=== PATIENT | female | born 1940 | race Caucasian/White ===

== ENCOUNTER 2016-12-23 09:42 | Inpatient (IN) ==
[2016-12-23] MEDS ORDERED: ANTIVERT PO ONE (10:21)
[2016-12-23] MEDS ORDERED: NS 500 ML IV ONE (10:21)
--- NOTE | 2016-12-23 10:33 | PROVIDER DOCUMENTATION ---
This chart was entered by Violeta Rico Scribe, acting as scribe for Jorge Ayers CRNP. HPI-Syncope/Dizziness - General Chief Complaint: Syncope Stated Complaint: DIZZY/BLACKING OUT/RASH Time Seen by Provider: 12/23/16 09:59 Source: patient Allergies/Adverse Reactions: Patient Allergies Allergy/AdvReac Type Severity Reaction Status Date / Time No Known Allergies Allergy Verified 12/23/16 09:49 Home Medications: Home Medication List Medication Instructions Recorded Confirmed Last Taken Type Meclizine [Antivert] 12.5 mg PO TID #30 tablet 09/29/15 12/23/16 Unknown Rx Metformin HCl [Metformin HCl ER] 500 mg PO BID #60 tab.er.24 09/29/15 12/23/16 Unknown Rx Ondansetron HCl [Zofran] 1 - 2 tab PO Q6H PRN PRN #15 tablet 09/29/15 12/23/16 Unknown Rx - History of Present Illness-Syncope/Dizzy Nature of Presenting Problem: Pt is 76 y/o F presents to the ED with syncopal episode. Pt states the syncopal episode happened this am. Pt states she is a diabetic and has not ate anything today. Pt states check FSBS this am and it was 114. Pt denies injury. Prior Episodes: reports: single episode today Onset/Duration: reports: this morning Timing: reports: gone now Position/Activity at time of episode: reports: standing Symptoms prior to episode: reports: none Context: reports: lost consciousness Loss of Consciousness: brief (seconds) Location of injury. (If syncope resulted in an injury.): reports: none Current Symptoms: reports: none/feels normal Recently Seen Here or By Another Healthcare Provider: No Review of Systems - Adult - REVIEW OF SYSTEMS - ADULT Constitutional: reports: no symptoms reported Eyes: reports: no symptoms reported Ears, Nose, Mouth & Throat: reports: no symptoms reported Cardiovascular: reports: irregular heart rate (tachy). denies: chest pain, heart murmur Respiratory: reports: no symptoms reported Gastrointestinal: reports: no symptoms reported Genitourinary: reports: no symptoms reported Musculoskeletal: reports: no symptoms reported Integumentary: reports: rash (R flank). denies: hives, itching Neurological: reports: syncope. denies: dizziness/vertigo, headache/migraines, numbness, seizure, slurred speech Psychiatric: reports: no symptoms reported Endocrine: reports: no symptoms reported Hematologic/Lymphatic: reports: no symptoms reported Allergic/Immunologic: reports: no symptoms reported All Other Systems: Reviewed and Negative Past History - Adult - PAST MEDICAL HISTORY-ADULT Review of Records: reports: Nursing Assessment Review, Medications Reviewed, Social history reviewed & non-contributory. Major Childhood Illnesses: reports: denies history Cardiovascular: reports: denies history Respiratory: reports: denies history Gastrointestinal: reports: GERD Obstetrical/Gynecological: reports: denies history Genitourinary: reports: denies history Musculoskeletal: reports: denies history Neurological: reports: denies history Endocrine/Immune: reports: Diabetes Other Conditions: reports: denies history - PRIOR SURGERIES/PROCEDURES Surgical/Procedure History: reports: reviewed, not pertinent - IMMUNIZATION STATUS Childhood Immunizations: See Nurse Assessment Flu Vaccine: See Nurse Assessment - FAMILY HISTORY Family History: reviewed, not pertinent - SOCIAL HISTORY Smoking: denies Substance Use: denies Living Situation: family Physical Exam-General - PHYSICAL EXAM-ADULT Initial Vital Signs Reviewed: Yes - CONSTITUTIONAL General Appearance: appears well, alert, no apparent distress - EYES Eyes: PERRL/EOMI, pink conjunctivae - HEAD, EARS, NOSE, MOUTH & THROAT HENMT: normocephalic/atraumatic, moist mucous membranes, normal ENT inspection, pharynx normal, TM abnormal (bilateral TM white and scarred) - NECK Neck: non-tender, full range of motion, supple, normal inspection - RESPIRATORY Respiratory: chest non-tender, lungs clear, normal breath sounds, no pleuratic chest pain, no respiratory distress, no accessory muscle use - CARDIOVASCULAR Cardiovascular: normal peripheral pulses, no edema, no gallop, no JVD, no murmur , tachycardia - GASTROINTESTINAL (ABDOMEN) Abdominal Exam: normal bowel sounds, non tender, soft, no organomegaly, no pulsatile mass - LYMPHATIC Lymphatic: no adenopathy - MUSCULOSKELETAL Back Exam: normal inspection, no CVA tenderness, no vertebral tenderness Extremity: normal range of motion, non-tender, normal gait, normal inspection, no pedal edema, no calf tenderness, normal capillary refill, pelvis stable - SKIN Integumentary: normal color, normal turgor, warm/dry, rash (R flank) - NEUROLOGIC 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 as tested, no motor/sensory deficits - PSYCHIATRIC Psych/Mental Status: normal mood/affect, normal thought content, normal thought process, oriented x 3 Progress - PLAN OF CARE/RESULTS Progress/Plan/Lab Results: Vital Signs - 8 hr 12/23/16 09:44 12/23/16 12:08 Temperature 97.0 F L Pulse Rate 109 H 98 H Respiratory Rate 20 16 Blood Pressure 110/069 116/057 O2 Sat by Pulse Oximetry 96 96 Laboratory Results - last 24 hr 12/23/16 12/23/16 12/23/16 10:40 10:40 10:40 WBC 20.97 H RBC 5.73 H Hgb 16.9 H Hct 49.3 H MCV 86.0 MCH 29.5 MCHC 34.3 RDW Std Deviation 13.1 Plt Count 211 MPV 10.2 Immature Gran % (Auto) 0.3 Neut % (Auto) 90.9 H Lymph % (Auto) 4.5 L Casey % (Auto) 3.9 Eos % (Auto) 0.3 Baso % (Auto) 0.1 Immature Gran # (Auto) 0.06 H Neut # (Auto) 19.07 H Lymph # (Auto) 0.94 L Casey # (Auto) 0.82 H Eos # (Auto) 0.06 Baso # (Auto) 0.02 Sodium 135 L Potassium 4.3 Chloride 97 L Carbon Dioxide 19 L Anion Gap 20 BUN 21 Creatinine 0.8 Estimated GFR/1.73 m2 > 60 BUN/Creatinine Ratio 26 Glucose 164 H Calculated Osmolality 277 Calcium 9.9 Total Bilirubin 1.30 H AST 19 ALT 10 Alkaline Phosphatase 67 Creatine Kinase 67 Troponin T < 0.010 Total Protein 8.4 H Albumin 4.1 Globulin 4.0 Albumin/Globulin Ratio 1.0 Orders Category Date Time Status Saline Loc NOW Care 12/23/16 10:20 Active CHEST-2 VIEWS [RAD] Stat Exams 12/23/16 10:20 Draft CBC WITH ELECTRONIC DIFF [HEME] Stat Lab 12/23/16 10:40 Completed CK PROFILE [SP CHEM] Stat Lab 12/23/16 10:40 Completed COMPREHENSIVE METABOLIC PANEL [CHEM] Stat Lab 12/23/16 10:40 Completed TROPONIN T Stat Lab 12/23/16 10:[address] W/POSS RFLX CULT [URINALYSIS] Stat Lab 12/23/16 12:55 Received 0.9% Sodium Chloride Inj [Ns] 1,000 ml Med 12/23/16 11:53 Discontinued .ROUTE As Directed 0.9% Sodium Chloride Inj [Ns] 1,000 ml Med 12/23/16 13:12 Discontinued .ROUTE As Directed 0.9% Sodium Chloride Inj [Ns] 500 ml Med 12/23/16 10:21 Discontinued IV 999 mls/hr Diphenhydramine [Benadryl] Med 12/23/16 13:00 Discontinued 25 mg IV NOW ONE Famotidine [Pepcid] Med 12/23/16 13:02 Discontinued 20 mg IV NOW ONE Meclizine [Antivert] Med 12/23/16 10:21 Discontinued 25 mg PO NOW ONE Methylprednisolone Sod Succ [Solu-Medrol] Med 12/23/16 13:02 Discontinued 80 mg IV NOW ONE Sodium Chloride 0.9% Med 12/23/16 13:02 Discontinued 5 - 10 ml INJ NOW ONE EKG [EKG] Stat Ther 12/23/16 10:20 Draft Discussed results and plan of care with patient. patient agrees with plan and verbalizes understanding. Result Diagrams: 12/23/16 10:40 12/23/16 10:40 - EKG 1 Time of EKG reading by physician:: 10:24 EKG Read and Signed by:: Yusef Cordova EKG Interpretation (*Must complete 3 of following elements*): Normal Rate: 100 Rhythm: normal sinus rhythm Comments: normal ECG - XRAY 1 XRAY: Bilateral XRAY Study: Chest Impression: Normal XRAY Interpretation: stable. NAP. (Lashawn) - CONSULTS/PCP/HOSPITALIST Notification #1 *Consult/PCP/Hospitalist*: Dr. Boyer Time Discussed: 13:27 Reason/Comments: Admission Consult Disposition: Admit Departure - Departure Time of Disposition Decision: 13:28 DIAGNOSIS: Acute urticaria Syncope Qualifiers: Syncope type: unspecified Qualified Code(s): R55 - Syncope and collapse Hypotension Qualifiers: Hypotension type: unspecified hypotension type Qualified Code(s): I95.9 - Hypotension, unspecified Leukocytosis Qualifiers: Leukocytosis type: unspecified Qualified Code(s): D72.829 - Elevated white blood cell count, unspecified Disposition: ADMITTED INPATIENT 09 Certified Medical Emergency: Emergent Condition: Stable Referrals and Follow-Ups: Jonny Boyer MD [Primary Care Provider] - Attestation - Physician/ CARLOS Attestation Patient care was provided by Advanced Practice Provider:: Yes Advanced Practice Provider:: Jorge Ayers Advanced Practice Provider documentation review:: The Mid-level provider documentation, treatment plan and medical decision making was reviewed by the physician who agrees with all treatment and medical decision making by the MLP. The physician spent face to face time with patient:: Yes Advanced Practice Provider documentation review:: The physician spent face to face time with this patient and agrees with all MLP documentation, treatment, and medical decision making by the MLP. See provider notes for further information. This chart was documented by the indicated scribe, (Violeta Rico Scribe) and accurately reflects the services I performed and decisions made by , Jorge Ayers CRNP, as attested by the provider's signature.
--- NOTE | 2016-12-23 10:37 | EKG Report ---
Test Performed on : 12/23/2016 10:24:09 AM Test Reason : syncope Blood Pressure : / mmHG Vent. Rate : 100 BPM Atrial Rate : 100 BPM P-R Int : 180 ms QRS Dur : 072 ms QT Int : 364 ms P-R-T Axes : 067 085 054 degrees QTc Int : 469 ms Normal sinus rhythm. Normal ECG No previous ECGs available Unconfirmed Result
[2016-12-23 10:46] LABS: BASO% 0.1 % (0.0-0.8); EOS# 0.06 X1000 (0.0-0.7); EOS% 0.3 % (0.0-10.0); HEMATOCRIT 49.3 % (37.0-47.0); HEMOGLOBIN 16.9 g/dL (12.0-16.0); IMM GRAN# 0.06 X1000 (0.0-0.04); IMM GRAN% 0.3 % (0.0-0.5); LYMPH# 0.94 X1000 (1.2-3.4); LYMPH% 4.5 % (20.5-51.1); MANUAL DIFF NEEDED? NO; MCH 29.5 PG (27-31); MCHC 34.3 g/dL (33-37); MONO# 0.82 X1000 (0.11-0.59); MONO% 3.9 % (1.7-9.3); MPV 10.2 FL (7.4-10.4); NEUT% 90.9 % (42.2-75.2); PLT 211 X1000 (130-400); RBC 5.73 XMIL (4.2-5.4)
[2016-12-23 11:00] LABS: AGAP 20; ALBUMIN 4.1 g/dL (3.5-5.0); ALKALINE PHOSPHATASE 67 U/L (32-104); BUN 21 mg/dL (8-22); CALCIUM 9.9 mg/dL (8.8-10.2); CHLORIDE 97 mmol/L (98-107); CK PROFILE 67 U/L (24-173); COSMO 277; GOT 19 U/L (10-30); GPT 10 U/L (10-36); POTASSIUM 4.3 mmol/L (3.5-5.1); SODIUM 135 mmol/L (136-145); TCO2 19 mmol/L (25-35); TOTAL PROTEIN 8.4 g/dL (6.3-8.3)
--- NOTE | 2016-12-23 11:29 | Diag Imaging Result Document ---
PROCEDURE NAME: CHEST-2 VIEWS - 12/23/2016 PA AND LATERAL RADIOGRAPH OF THE CHEST: COMPARISON: 09/29/2015. FINDINGS: There is evidence of prior granulomatous disease, stable. There is stable biapical pleural thickening. This is mild. The lungs may be mildly hyperinflated, stable. The lungs are clear otherwise. Cardiac silhouette and central vasculature are unremarkable. IMPRESSION: Stable chest with no definite acute pathology.
[2016-12-23] MEDS ORDERED: NS 1,000 ML ONE ×2 (11:53→13:12)
[2016-12-23] MEDS ORDERED: BENADRYL IV ONE (13:00)
[2016-12-23] MEDS ORDERED: SODIUM CHLORIDE 0.9% INJ ONE (13:02)
[2016-12-23] MEDS ORDERED: PEPCID IV ONE (13:02)
[2016-12-23] MEDS ORDERED: SOLU-MEDROL IV ONE (13:02)
[2016-12-23 13:04] LABS: URINE CULTURE PL NEEDED? NO
[2016-12-23] MEDS ORDERED: ZOFRAN IV ONE (13:28)
[2016-12-23] MEDS ORDERED: ZOFRAN IV PRN (13:30)
[2016-12-23] MEDS ORDERED: NS 1,000 ML IV ONE ×2 (13:30→13:49)
[2016-12-23 13:38] LABS: BILIRUBIN URINE NEGATIVE (NEGATIVE); BLOOD URINE NEGATIVE (NEGATIVE); CLARITY CLEAR (CLEAR); COLOR YELLOW; GLUCOSE URINE NEGATIVE (NEGATIVE); LEUKOCYTES URINE NEGATIVE (NEGATIVE); NITRITE URINE NEGATIVE (NEGATIVE); PROTEIN URINE 1+(30 mg/dL) mg/dL (NEGATIVE); UROBILINOGEN URINE NORMAL
[2016-12-23 13:39] LABS: OCCULT BLOOD 1 NEGATIVE (NEGATIVE)
[2016-12-23 13:41] LABS: URINE EPITHELIAL CELLS <10 /HPF (<10); URINE RBC <10 /HPF (<10); URINE WBC <10 /HPF (<10)
[2016-12-23 13:42] LABS: URINE CAST NONE SEEN /LPF; URINE CRYSTAL NONE SEEN /HPF; URINE SOURCE VOIDED
[2016-12-23] MEDS ORDERED: TYLENOL PO PRN (20:10)
[2016-12-23] MEDS ORDERED: ROCEPHIN 1 GM/NS 1 GM/50 ML IVPB IV SCH (20:15)
[2016-12-23] MEDS ORDERED: BENADRYL PO PRN (21:13)
[2016-12-24 06:12] LABS: HEMATOCRIT 42.5 % (37.0-47.0); HEMOGLOBIN 14.1 g/dL (12.0-16.0); MCHC 33.2 g/dL (33-37); MCV 87.3 FL (81-99); MPV 10.4 FL (7.4-10.4); RBC 4.87 XMIL (4.2-5.4)
[2016-12-24 06:43] LABS: AGAP 10; ALBUMIN 3.2 g/dL (3.5-5.0); ALKALINE PHOSPHATASE 42 U/L (32-104); BUN 24 mg/dL (8-22); CALCIUM 8.6 mg/dL (8.8-10.2); CHLORIDE 102 mmol/L (98-107); COSMO 279; GOT 16 U/L (10-30); GPT 9 U/L (10-36); MAGNESIUM 1.8 mg/dL (1.5-2.7); POTASSIUM 4.7 mmol/L (3.5-5.1); SODIUM 136 mmol/L (136-145); TCO2 24 mmol/L (25-35); TOTAL PROTEIN 6.1 g/dL (6.3-8.3)
--- NOTE | 2016-12-24 08:04 | Diag Imaging Result Document ---
PROCEDURE NAME: CHEST-2 VIEWS - 12/24/2016 FRONTAL AND LATERAL CHEST, TWO VIEWS: COMPARISON: 12/23/2016. FINDINGS: The lungs are well expanded. The heart is not enlarged. The vessels are not distended. No pleural effusions. No pneumonia. There is scarring in the upper right lung. I believe there are several small calcified mediastinal lymph nodes. IMPRESSION: 1. The lungs are hyperexpanded and there is evidence of a prior granulomatous infection. 2. Stable chest.
[2016-12-24 10:58] VITALS: BP 143/46
--- NOTE | 2016-12-25 00:17 | DISCHARGE SUMMARY ---
ADMISSION DATE: 12/23/2016 DISCHARGE DATE: 12/24/2016 DISCHARGE DIAGNOSES: 1. Syncope, resolved. 2. Hypotension, resolved. 3. Nausea and vomiting, resolved. 4. Rash, resolved. 5. Diabetes, stable. CONSULTATIONS: None. PROCEDURES: None. BRIEF HOSPITAL COURSE: The patient is a 76-year-old female who presented to the emergency department yesterday after having a syncopal episode at home. While in the ER, her blood pressure dropped to 77 systolic. However, she had no further instances of this during the hospital stay. In fact, she ambulated in the nascimento without any difficulty on the date of discharge. She was eating and drinking. She had an intense episode of vomiting in the ER, but I feel as though this was secondary to being placed in Trendelenburg due to her blood pressure being low. She has had no chest pain, no shortness of breath. She has had no symptoms. She notes that she feels back to her usual self. Her granddaughter actually notes that this happened approximately 3 years ago, and has not happened since. Disposition discussed with Ms. Ramirez, as well as her daughter and granddaughter. This likely was a vasovagal-type syncope. So far, all of her labs, x-rays, everything has been normal. Blood pressures have been stable. Therefore, she will be discharged home, and will follow up outpatient. Thirty-five minutes was spent in discharge planning and instructions. cc: Jonny Boyer MD
--- NOTE | 2016-12-28 13:42 | HISTORY AND PHYSICAL ---
CHIEF COMPLAINT: Dizziness. HISTORY OF PRESENT ILLNESS: Patient is a 76-year-old female who presented to [facility] noting that she has been having some dizziness and lightheadedness for the past couple of days. She is diabetic but notes that she has not eaten anything. She did check her blood sugar thinking that was the cause. It was 114. States he has been lightheaded and slightly dizzy when she stands up. [place] as though she was going to pass out. Denies any current chest pain, palpitations. Denies any fevers, chills. ALLERGIES: No known drug allergies. MEDICATIONS: 1. Antivert. 2. Metformin. 3. Zofran. REVIEW OF SYSTEMS: See the patient notes that she has had an elevated rate. She denies any current chest pain, palpitations. Denies any fevers or chills. Denies dysuria, frequency, urgency. Denies constipation, notes that she is always dizzy but she does not typically passed out. She denies weight loss. She does state that she has had a rash off and on for the last 3 days but is uncertain of the cause. FAMILY HISTORY: Noncontributory. SOCIAL HISTORY: Patient lives at home. She has family that helps care for her. PAST MEDICAL HISTORY: Diabetes, chronic reflux, history of vertigo. PHYSICAL EXAMINATION: VITAL SIGNS: Temperature 97 degrees, pulse 109, respiratory rate 20, blood pressure 110/69. Saturating 96% on room air. GENERAL: Patient is awake, alert. She is oriented. She is in no current respiratory distress. She is pleasant to talk with. Speech is regular. Memory is intact. NECK: Supple. CARDIOVASCULAR: Regular rate and rhythm. CHEST: Relatively clear. ABDOMEN: Soft. EXTREMITIES: Moves all extremities. NEUROLOGIC: No changes. SKIN: Warm and dry. No rashes. LABORATORY DATA: Reviewed: WBC is 20.9. Hemoglobin and hematocrit 16 and 49. Total bilirubin 1.3. First set of cardiac enzymes are negative. ASSESSMENT: 1. Syncope. 2. Urticaria. 3. Diabetes. 4. Chronic history of vertigo. PLAN: We will admit patient to the hospital. We will continue to follow. We will follow her syncopal type symptoms. We will get physical therapy involved. We will attempt to ambulate. Restart her home medications. Follow her blood pressures. Further orders as needed. cc: Jonny Boyer MD
== END 2016-12-24 14:47 | disposition home or self-care (01) ==
LOC: P.ED 09:42 → P.MEDSURG 14:10
PROVIDERS: ADMIT Family Medicine; ATTEND Family Medicine